=== PATIENT | male | born 1940 | race Caucasian/White ===

== ENCOUNTER 2017-11-23 10:59 | Emergency (ER) | payer OTHER ==
[2017-11-23 11:04] VITALS: BP 182/93; TEMP 98; BMI 29.7
--- NOTE | 2017-11-23 11:16 | ED.PDOC ---
General ED Provider: Dr. MARY SYED Chief Complaint: Finger Laceration Stated Complaint: "Cut my finger". States Time Seen by Physician: 11:05 Mode of Arrival: Walk-In Information Source: Patient Primary Care Provider: MARY MCCARTY Nursing and Triage Documentation Reviewed and Agree: Yes Does patient meet sepsis criteria?: No System Inflammatory Response Syndrome: Not Applicable Sepsis Protocol: For patient's 13 years and over: Temp is 96.8 and below OR 101 and greater Pulse >90 BPM Resp >20/minute Acutely Altered Mental Status Are patient's symptoms suggestive of a new infection, such as: -Pneumonia -Skin, Soft Tissue -Endocarditis -UTI -Bone, Joint Infection -Implantable Device -Acute Abdominal Infection -Wound Infection -Meningitis -Blood Stream Catheter Infection -Unknown Musculoskeletal Complaint Exam - Hand/Wrist Complaint/Exam Location of Pain: Reports: Left, Hand, Digit #5 (Distal palmar aspect) Mechanism of Injury: Reports: Trauma Onset/Duration: 15-16 hours ago Symptoms Are: Still present Onset of Pain: Reports: Immediate Initial Severity: Moderate Current Severity: Mild Location: Reports: Discrete Character: Reports: Sharp, Throbbing Alleviating: Reports: Rest Aggravating: Reports: Movement Associated Signs and Symptoms: Reports: Swelling (and bleeding) Dominant Hand: Right Related Surgical History: Reports: None Hand/Wrist Findings: Present: Laceration (Lt 5th digit -palmar aspect 1.5-2 cm X .5 cm) Differential Diagnoses: Other (Laceration ) Review of Systems - Review Of Systems Constitutional: Reports: No symptoms Eyes: Reports: No symptoms Ears, Nose, Mouth, Throat: Reports: No symptoms Respiratory: Reports: No symptoms Cardiac: Reports: No symptoms GI: Reports: No symptoms : Reports: No symptoms Musculoskeletal: Reports: Other (Thumb pain ) All Other Systems: Reviewed and Negative Past Medical History - Past Medical History Endocrine: Reports: Hypothyroid Cardiovascular: Reports: IN, Hypertension, CHF Respiratory: Reports: None Hematological: Reports: None Gastrointestinal: Reports: GERD Genitourinary: Reports: None Neuro/Psych: Reports: None Musculoskeletal: Reports: Arthritis Cancer: Reports: None - Surgical History General Surgical History: Reports: CABG (Triple Bypass 2003,), Orthopedic (Left knee Replacement 2004), Other (Cataract surgery both eyes 2005 ) - Family History Family History: Reports: None - Social History Smoking Status: Former smoker Hx Substance Use: No Alcohol Screening: None - Immunizations Tetanus Shot up to Date: No Physical Exam - Physical Exam Appearance: Well-appearing Ill-appearing: None Pain Distress: Mild Eyes: AN, EOMI, Conjunctiva clear ENT: Ears normal, Nose normal, Oropharynx normal Neck: Supple Respiratory: Airway patent, Breath sounds clear, Breath sounds equal, Respirations nonlabored Cardiovascular: RRR, Pulses normal, No rub, No murmur GI/: Soft, Nontender, No masses, Bowel sounds normal, No Organomegaly Musculoskeletal: Edema (lt 5th digit) Skin: Warm (bleeding -oozing from base of wound ), Dry, Normal color Neurological: Sensation intact, Motor intact Psychiatric: Affect appropriate, Mood appropriate Procedures - Laceration/Wound Repair lt 5th digit Wound Description: Skin tear (avulsion 2.5 cmX .5 cm) Wound Length (cm): 2.5 cm Wound Explored: Clean Wound Irrigated: Yes - Additional Procedures Additional Procedures: Other (Application of wound coagulant/application of silver nitrate to stop continued bleeding) Re-Evaluation - Re-Evaluation Time of Re-Evaluation: 12:10 Status: Improved Vital Signs Stable: Yes (Bleeding has stopped) Critical Care Note - Critical Care Note Total Time (mins): 30 Course - Course Orders, Labs, Meds: Orders Category Date Time Status Diphth,Pertuss(Acell),Tet Vac [Boostrix] MEDS 11/23/17 12:23 Once 0.5 ml IM .ONCE ONE Silver Nitrate Applicator MEDS 11/23/17 11:52 Stat 1 each TP ONCE STA Medications Discontinued Medications Generic Name Dose Route Start Last Admin Trade Name Frankq PRN Reason Stop Dose Admin Diphtheria/Pertussis/Tetanus Vacc 0.5 ml 11/23/17 12:23 Boostrix IM 11/23/17 12:24 .ONCE ONE Silver Nitrate 1 each 11/23/17 11:52 11/23/17 11:57 Silver Nitrate Applicator TP 11/23/17 11:53 1 each ONCE STA Administration Vital Signs: Temp Pulse Resp BP Pulse Ox 11/23/17 11:00 98.0 F 80 16 182/93 H 98 Departure - Departure Time of Disposition: 12:25 Disposition: HOME SELF-CARE Discharge Problem: Laceration of finger of left hand, Hypertension Instructions: Acute Wound Care (ED), Laceration (ED) Condition: Good Pt referred to PMD for follow-up: Yes (Dr Mccarty in 48 hours) IPMP verified?: No Additional Instructions: Wound care as directed Take meds as prescribed Tylenol tabs 2 every 4 hrs for pain as needed for pain If you develop additional problems call back Leave dressing in place until followup by Dr Mccarty Prescriptions: Cephalexin [Keflex] 500 mg PO BID #14 capsule Allergies/Adverse Reactions: Allergies fentanyl Adverse Reaction (Verified 11/23/17 11:04) Vomiting Home Medications: Ambulatory Orders Omeprazole [Prilosec] 20 mg PO QDAC 05/22/13 Tamsulosin HCl [Flomax] 0.8 mg PO QDPC 05/22/13 Furosemide [Lasix Tab] 20 mg PO QDAC 11/14/15 Losartan Potassium [Cozaar] 50 mg PO DAILY 11/14/15 Methimazole 5 mg PO DAILY 11/14/15 Oxybutynin Chloride [Ditropan Xl] 10 mg PO DAILY 11/14/15 Rivaroxaban [Xarelto] 20 mg PO DAILY 11/14/15 Cephalexin [Keflex] 500 mg PO BID #14 capsule 11/23/17 Finasteride [Proscar] 5 mg PO DAILY 11/23/17 Disposition Discussed With: Patient
[2017-11-23] MEDS ORDERED: SILVER NITRATE APPLICATOR TP STA (11:52)
[2017-11-23] MEDS ORDERED: BOOSTRIX IM ONE (12:23)
== END 2017-11-23 12:45 | disposition home or self-care (01) ==
LOC: ED 10:59
DX: S61.217A Laceration without foreign body of left little finger without damage to nail, initial encounter (principal); I10 Essential (primary) hypertension; W45.8XXA Other foreign body or object entering through skin, initial encounter
CPT/HCPCS: 90471; 90715; 99283

== ENCOUNTER 2018-09-11 15:04 | Outpatient (CLI) | payer OTHER ==
--- NOTE | 2018-09-12 08:03 | DI ---
EXAM: CHEST FRONTAL AND LATERAL VIEWS HISTORY: Cough. COMPARISON: 11/14/2015 FINDINGS: Prominent heart size is stable. Prior sternotomy. There is at least mild atherosclerotic disease. No acute infiltrates are seen. No vascular congestion. There is no consolidation, visibl e pleural fluid or pneumothorax. Bones reveal no acute fracture. IMPRESSION: No acute cardiopulmonary process.
== END 2018-09-11 15:05 | disposition home or self-care (01) ==
LOC: RAD 15:04
PROVIDERS: ATTEND Family Medicine
DX: R05 Cough (principal)